=== PATIENT | male | born 1985 | race Two or more races ===

== ENCOUNTER 2020-12-12 11:11 | Emergency (ER) | payer MEDICAID, OTHER ==
[~2020-12-12] VITALS: Ht 162.6 cm; Wt 116.6 kg
[2020-12-12 11:13] VITALS: BP 134/80
[2020-12-12] MEDS ORDERED: FLUORESCEIN SOD 1 MG TEST STRIP RIGHTEYE ONE (12:30)
[2020-12-12] MEDS ORDERED: TETRACAINE HCL 0.5% OPTH(EYE) SOLN 4ML RIGHTEYE ONE (12:30)
== END 2020-12-12 13:03 | disposition home or self-care (01) ==
LOC: ER 11:11
DX: H10.31 Unspecified acute conjunctivitis, right eye (principal); H11.001 Unspecified pterygium of right eye